=== PATIENT | female | born 1950 ===

== ENCOUNTER 2019-06-09 05:15 | Day surgery (SDC) | payer OTHER ==
[~2019-06-09 05:15] MED LIST: CRESTOR40 MG PO; MELOXICAM15 MG PO; VITAMIN D310000 UNIT PO; XYZAL5 MG PO; ZESTRIL2.5 MG PO; ZOLOFT50 MG PO; [UNRECOGNIZED DRUG - REMARK] PO
== END 2019-06-09 19:45 | disposition home or self-care (01) ==
LOC: CIR.AMB 05:15 → ADM 10:00 → CIR.AMB 10:00
DX: D07.2 Carcinoma in situ of vagina (principal)